=== PATIENT | male | born 1950 | race Caucasian/White ===

== ENCOUNTER 2017-05-11 12:24 | Emergency (ER) | payer OTHER ==
[~2017-05-11] VITALS: Ht 162.6 cm; Wt 75.6 kg
[~2017-05-11 12:24] MED LIST: ASPEC81 PO; ATV/1 PO; CYM60 PO; DICL1GEL12 TOP; DUTACAP PO; FERR1TAB23 PO; FRS/40 PO; GLC500 PO; LISI-461 PO; LPT40 PO; METO25TA3 PO; NTRSLP4 SL; PAIN PUMP; PRED-301 PO; PREG100C PO
[2017-05-11 12:28] VITALS: TEMP 36.5; Ht 162.6 cm; Wt 75.6 kg
--- NOTE | 2017-05-11 12:48 | EMERGENCY ROOM VISIT NOTE ---
History Report prepared by Michael: Sarah Gtz Under the Supervision of: Dr. Imtiaz Burnett M.D. First contact with patient: 12:41 Chief Complaint: ANKLE PAIN Stated Complaint: RT ANKLE TWISTED, FELL OVER DOG History of Present Illness The patient is a 66 year old male who presents to the Emergency Room with complaints of persistent right ankle pain for the past three days. He currently rates his discomfort as a 10/10 in severity. The patient states that on Thursday (2 days ago) he fell over his dog, injuring his right ankle. He denies any other injury due to the fall. The patient's states that the patient has a history of rheumatoid arthritis, noting that he has swelling to the tops of his feet. The patient reports increased swelling to his lateral aspect of his right ankle. He denies any fever or chills. The patient reports normal urination, normal appetite and fluid intake. He denies any known history of PEs or DVTs. The patient denies being on any anti-coagulants. The patient's states that the patient has a morphine pain pump. Source of History: patient Onset: past three days Position: ankle (right) Symptom Intensity: 10/10 Timing: other (persistent) Associated Symptoms: No fevers, No chills Review of Systems See HPI for pertinent positives & negatives. A total of 10 systems reviewed and were otherwise negative. Past Medical & Surgical Medical Problems: (1) Chronic pain (2) DM type 2 (diabetes mellitus, type 2) (3) HTN (hypertension) (4) Osteoarthritis (5) Rheumatoid arthritis Surgical Problems: (1) H/O hernia repair (2) Hammer toe surgery (3) History of colostomy reversal (4) History of partial colectomy (5) Left wrist surgery (6) S/P rotator cuff repair Social History Smoking Status: Never Smoker Marital Status: Housing Status: lives with significant other Occupation Status: disabled Current/Historical Medications Scheduled Aspirin (Aspirin EC Low Dose), 81 MG PO DAILY Atorvastatin (Atorvastatin Calcium), 80 MG PO HS Cephalexin Monohydrate (Keflex), 500 MG PO QID Diclofenac Sodium (Topical) (Voltaren 1% Top Gel), 1 APPLN TOP BID Duloxetine Hcl (Cymbalta), 60 MG PO BID Dutasteride-Tamsulosin Hcl (Charisma), 1 CAP PO DAILY Ferrous Sulfate (Iron), 325 MG PO QD Furosemide (Lasix), 20 MG PO DAILY Lidocaine (Lidoderm Patch 5%), 1 PATCH TOP DIRECTED Lisinopril (Lisinopril), 10 MG PO QAM Lorazepam (Ativan), 0.5 MG PO QID Metformin Hcl (Glucophage), 500 MG PO TID Metoprolol Succinate (Toprol Xl), 1 TAB PO BID Prednisone (Prednisone), 5 MG PO DAILY Pregabalin (Lyrica), 100 MG PO TID Scheduled PRN Nitroglycerin (Nitrostat), 0.4 MG SL UD PRN for Chest Pain Durable Medical Equipment [Pain Pump], BAG DAILY Allergies Coded Allergies: Celecoxib (Verified Allergy, Unknown, HIVES, 11/19/15) Levofloxacin (Verified Allergy, Unknown, HIVES, 11/19/15) Mushroom (Verified Allergy, Unknown, ., 11/19/15) Aspirin (Verified Adverse Reaction, Unknown, GASTRIC UPSET, 07/12/10) Physical Exam Vital Signs Date Time Temp Pulse Resp B/P (MAP) Pulse Ox O2 Delivery O2 Flow Rate FiO2 05/11/17 14:30 61 20 102/64 97 Room Air 05/11/17 12:28 36.5 88 20 90/44 99 Room Air Physical Exam GENERAL: Patient is in no acute distress. HEENT: No acute trauma, normocephalic atraumatic, mucous membranes moist, no nasal congestion, no scleral icterus. NECK: No stridor, no adenopathy, no meningismus, trachea is midline. LUNGS: Clear to auscultation bilaterally, no wheeze, no rhonchi, breath sounds equal. HEART: Without murmurs gallops or rubs, regular rate and rhythm. ABDOMEN: Soft, nontender, bowel sounds positive, no hernias, no peritonitis. EXTREMITIES: Right leg edema when compared to the left, pain with palpation of the lateral ankle down to the lateral foot, erythema and warmth to the distal right leg and the right ankle, no drainage. NEUROLOGIC: Oriented x 3, no acute motor or sensory deficits, no focal weakness. SKIN: No rash, no jaundice, no diaphoresis. Medical Decision & Procedures ER Provider Diagnostic Interpretation: Radiology results as stated below per my review and radiologist interpretation: RIGHT LOWER EXTREMITY VENOUS DOPPLER CLINICAL HISTORY: Right lower extremity swelling. COMPARISON STUDY: No previous studies for comparison. TECHNIQUE: Sonography of the deep venous system of the right lower extremity was performed. Compression and augmentation were evaluated. FINDINGS: The right common femoral, superficial femoral and popliteal veins were compressible. Augmentation was normal. Flow was shown within the deep calf vessels. IMPRESSION: No evidence of deep venous thrombus within the right lower extremity. Electronically signed by: Curtis Schafer M.D. 05/11/2017 2:23 PM Dictated Date/Time: 05/11/2017 2:23 PM R ANKLE MIN 3 VIEWS ROUTINE, R TIBIA/FIBULA 2 VIEWS ROUTINE CLINICAL HISTORY: fall, pain. Right lower leg and ankle pain. COMPARISON STUDY: None. FINDINGS: Soft tissue swelling within the right ankle. Oblique nondisplaced fracture with the distal right fibula. The proximal tibia and proximal fibula are intact. No dislocation within the right ankle. Well-corticated ossific density along the medial malleolus is consistent with an old avulsion injury. Old avulsion injuries are also seen at the dorsal anterior talus. IMPRESSION: Oblique acute nondisplaced fracture within the distal right fibula. No acute fractures within the tibia.. Electronically signed by: Hay Kauffman M.D. 05/11/2017 2:42 PM Dictated Date/Time: 05/11/2017 2:36 PM R ANKLE MIN 3 VIEWS ROUTINE, R TIBIA/FIBULA 2 VIEWS ROUTINE CLINICAL HISTORY: fall, pain. Right lower leg and ankle pain. COMPARISON STUDY: None. FINDINGS: Soft tissue swelling within the right ankle. Oblique nondisplaced fracture with the distal right fibula. The proximal tibia and proximal fibula are intact. No dislocation within the right ankle. Well-corticated ossific density along the medial malleolus is consistent with an old avulsion injury. Old avulsion injuries are also seen at the dorsal anterior talus. IMPRESSION: Oblique acute nondisplaced fracture within the distal right fibula. No acute fractures within the tibia.. Electronically signed by: Hay Kauffman M.D. 05/11/2017 2:42 PM Dictated Date/Time: 05/11/2017 2:36 PM RIGHT FOOT 3 VIEWS HISTORY: Right foot pain. FALL, PAIN COMPARISON: None. FINDINGS: Dorsal soft tissue swelling. There is lateral displacement/angulation of the metatarsals in relation to the tarsal bones. This is consistent with an old Lisfranc fracture/dislocation. No definite acute fracture identified within the right foot. Deformity with dislocation at the third MTP joint. There is also medial angulation and dislocation at the fourth and fifth MTP joints. This appears to be chronic. Moderate to severe degenerative changes at the midfoot. Tiny plantar heel spur. No radiopaque foreign bodies. IMPRESSION: 1. No definite acute fractures identified within the right foot. 2. Deformities and dislocations as described above which appear to be chronic. There is associated degenerative change and possibly developing neuropathic changes within the foot. Electronically signed by: Hay Kauffman M.D. 05/11/2017 2:45 PM Dictated Date/Time: 05/11/2017 2:42 PM The status of this report is Signed. Draft = Not yet reviewed or approved by Radiologist. Signed = Reviewed and approved by Radiologist. Laboratory Results 05/11/17 13:05 Red Blood Count 4.78, Mean Corpuscular Volume 76.4, Mean Corpuscular Hemoglobin 25.7, Mean Corpuscular Hemoglobin Concent 33.7, Mean Platelet Volume 8.2, Neutrophils (%) (Auto) 69.5, Lymphocytes (%) (Auto) 14.5, Monocytes (%) (Auto) 14.0, Eosinophils (%) (Auto) 1.2, Basophils (%) (Auto) 0.6, Neutrophils # (Auto ) 3.59, Lymphocytes # (Auto) 0.75, Monocytes # (Auto) 0.72, Eosinophils # (Auto ) 0.06, Basophils # (Auto) 0.03 05/11/17 13:05 Test 05/11/17 13:05 05/11/17 13:11 White Blood Count 5.16 K/uL (4.8-10.8) Red Blood Count 4.78 M/uL (4.7-6.1) Hemoglobin 12.3 g/dL (14.0-18.0) Hematocrit 36.5 % (42-52) Mean Corpuscular Volume 76.4 fL (80-100) Mean Corpuscular Hemoglobin 25.7 pg (25-34) Mean Corpuscular Hemoglobin Concent 33.7 g/dl (32-36) Platelet Count 275 K/uL (130-400) Mean Platelet Volume 8.2 fL (7.4-10.4) Neutrophils (%) (Auto) 69.5 % Lymphocytes (%) (Auto) 14.5 % Monocytes (%) (Auto) 14.0 % Eosinophils (%) (Auto) 1.2 % Basophils (%) (Auto) 0.6 % Neutrophils # (Auto) 3.59 K/uL (1.4-6.5) Lymphocytes # (Auto) 0.75 K/uL (1.2-3.4) Monocytes # (Auto) 0.72 K/uL (0.11-0.59) Eosinophils # (Auto) 0.06 K/uL (0-0.5) Basophils # (Auto) 0.03 K/uL (0-0.2) RDW Standard Deviation 44.0 fL (36.4-46.3) RDW Coefficient of Variation 15.8 % (11.5-14.5) Immature Granulocyte % (Auto) 0.2 % Immature Granulocyte # (Auto) 0.01 K/uL (0.00-0.02) Prothrombin Time 11.7 SECONDS (9.0-12.0) Prothromb Time International Ratio 1.1 (0.9-1.1) Activated Partial Thromboplast Time 27.4 SECONDS (21.0-31.0) Partial Thromboplastin Ratio 1.1 Anion Gap 8.0 mmol/L (3-11) Est Creatinine Clear Calc Drug Dose 104.0 ml/min Estimated GFR () 117.5 Estimated GFR (Non- 101.4 BUN/Creatinine Ratio 18.1 (10-20) Calcium Level 8.7 mg/dl (8.5-10.1) Bedside Lactic Acid Venous 1.18 mmol/L (0.90-1.70) Laboratory results reviewed by me. ED Course 1242: The patient was evaluated in room B5. A complete history and physical exam was performed. 1449: I reevaluated the patient and he is resting comfortably. I discussed the exam findings with him and I discussed the treatment plan. He verbalized complete understanding and agreement. He states that he would like to try to go home. Orthopedics will be consulted. 151: Ordered Rocephin Inj 1 gm IV. 1501: I discussed the patients case with [facility]. They are going to see the patient within the next few days. 1509: I reevaluated the patient and he is resting. I updated him on the treatment plan. He is ready for discharge shortly. Medical Decision The patient is a 66 year old male who presents to the ED with complaints of right ankle pain. Differential diagnoses considered include Ankle fracture, DVT , cellulitis, tib/fib fracture, foot fracture. There is no leukocytosis or concerning anemia. No significant electrolyte abnormality or kidney failure. Lactic acid level is not elevated making sepsis less likely. Blood cultures are pending. Right leg ultrasound does not show DVT. Right tib-fib, right ankle and right foot films were done-there is a distal fibular fracture, no dislocation to the ankle joint, no foot fracture. The patient received IV ceftriaxone. He was placed in a right foot/ankle boot. I did talk with orthopedics. The patient is going to be seen in the outpatient office. He will be on Keflex as well for the possibility of an early cellulitis. He was encouraged to return here for worsening redness, fever or vomiting. Medication Reconcilliation Current Medication List: was personally reviewed by me Blood Pressure Screening Patient's blood pressure: Low blood pressure Blood pressure disposition: Did not require urgent referral Consults Time Called: 1451 Consulting Physician: [facility] Returned Call: 1501 I discussed the patients case with [facility]. They are going to see the patient within the next few days. Impression Primary Impression: Ankle fracture, right Additional Impression: Cellulitis Scribe Attestation The scribe's documentation has been prepared under my direction and personally reviewed by me in its entirety. I confirm that the note above accurately reflects all work, treatment, procedures, and medical decision making performed by me. Departure Information Dispostion Home / Self-Care Prescriptions Cephalexin Monohydrate (Keflex) 500 Mg Cap 500 MG PO QID, #28 CAP Prov: Imtiaz Burnett M.D. 05/11/17 Referrals Mandeep Matamoros M.D. (PCP) Gaetano Cullen M.D. Forms HOME CARE DOCUMENTATION FORM, IMPORTANT VISIT INFORMATION Patient Instructions My [facility] Additional Instructions wear the boot for now keflex 4x per day for 1 week see orthopedics---call tomorrow for an appt continue the pain meds as before return for fever or worsening symptoms Problem Qualifiers
[2017-05-11] MEDS ORDERED: NF656 TOP (12:54)
[2017-05-11] MEDS ORDERED: GLC/500 PO (12:54)
[2017-05-11] MEDS ORDERED: DULO60CA44 PO (12:54)
[2017-05-11 13:35] LABS: BASO % 0.6 %; BASO ABS # 0.03 K/uL (0-0.2); COMPLETE YES; EOS % 1.2 %; HEMATOCRIT 36.5 % (42-52); IG% 0.2 %; LYMPH % 14.5 %; LYMPH ABS # 0.75 K/uL (1.2-3.4); MEAN CELL VOLUME 76.4 fL (80-100); MEAN CORPUSCULAR HEMOGLOBIN 25.7 pg (25-34); MEAN CORPUSCULAR HGB CONC 33.7 g/dl (32-36); MEAN PLATELET VOLUME 8.2 fL (7.4-10.4); NEUT % 69.5 %; PLATELET COUNT 275 K/uL (130-400); RED BLOOD COUNT 4.78 M/uL (4.7-6.1); WHITE BLOOD COUNT 5.16 K/uL (4.8-10.8)
[2017-05-11 13:41] LABS: INR 1.1 (0.9-1.1); PARTIAL THROMBOPLASTIN RATIO 1.1; PROTHROMBIN TIME (PATIENT) 11.7 SECONDS (9.0-12.0)
[2017-05-11 13:51] LABS: BUN/CREATININE RATIO 18.1 (10-20); CALCIUM 8.7 mg/dl (8.5-10.1); CREATININE 0.65 mg/dl (0.60-1.40); POTASSIUM 4.5 mmol/L (3.5-5.1)
--- NOTE | 2017-05-11 14:25 | DIAGNOSTIC IMAGING REPORT ---
RIGHT LOWER EXTREMITY VENOUS DOPPLER CLINICAL HISTORY: Right lower extremity swelling. COMPARISON STUDY: No previous studies for comparison. TECHNIQUE: Sonography of the deep venous system of the right lower extremity was performed. Compression and augmentation were evaluated. FINDINGS: The right common femoral, superficial femoral and popliteal veins were compressible. Augmentation was normal. Flow was shown within the deep calf vessels. IMPRESSION: No evidence of deep venous thrombus within the right lower extremity. Electronically signed by: Curtis Schafer M.D. 05/11/2017 2:23 PM Dictated Date/Time: 05/11/2017 2:23 PM
--- NOTE | 2017-05-11 14:43 | DIAGNOSTIC IMAGING REPORT ---
R ANKLE MIN 3 VIEWS ROUTINE, R TIBIA/FIBULA 2 VIEWS ROUTINE CLINICAL HISTORY: fall, pain. Right lower leg and ankle pain. COMPARISON STUDY: None. FINDINGS: Soft tissue swelling within the right ankle. Oblique nondisplaced fracture with the distal right fibula. The proximal tibia and proximal fibula are intact. No dislocation within the right ankle. Well-corticated ossific density along the medial malleolus is consistent with an old avulsion injury. Old avulsion injuries are also seen at the dorsal anterior talus. IMPRESSION: Oblique acute nondisplaced fracture within the distal right fibula. No acute fractures within the tibia.. Electronically signed by: Hay Kauffman M.D. 05/11/2017 2:42 PM Dictated Date/Time: 05/11/2017 2:36 PM
--- NOTE | 2017-05-11 14:47 | DIAGNOSTIC IMAGING REPORT ---
RIGHT FOOT 3 VIEWS HISTORY: Right foot pain. FALL, PAIN COMPARISON: None. FINDINGS: Dorsal soft tissue swelling. There is lateral displacement/angulation of the metatarsals in relation to the tarsal bones. This is consistent with an old Lisfranc fracture/dislocation. No definite acute fracture identified within the right foot. Deformity with dislocation at the third MTP joint. There is also medial angulation and dislocation at the fourth and fifth MTP joints. This appears to be chronic. Moderate to severe degenerative changes at the midfoot. Tiny plantar heel spur. No radiopaque foreign bodies. IMPRESSION: 1. No definite acute fractures identified within the right foot. 2. Deformities and dislocations as described above which appear to be chronic. There is associated degenerative change and possibly developing neuropathic changes within the foot. Electronically signed by: Hay Kauffman M.D. 05/11/2017 2:45 PM Dictated Date/Time: 05/11/2017 2:42 PM
[2017-05-11] MEDS ORDERED: CEFTRIAXONE SOD INJ 1 GM ADDVIAL IV STA (14:51)
[2017-05-11] MEDS ORDERED: CEPH500C PO (15:07)
[2017-05-11 15:39] VITALS: BP 113/65; PULSE 67; O2SAT 94
== END 2017-05-11 15:46 | disposition home or self-care (01) ==
LOC: C.EDB 12:26
DX: S82.434A Nondisplaced oblique fracture of shaft of right fibula, initial encounter for closed fracture (principal); W01.0XXA Fall on same level from slipping, tripping and stumbling without subsequent striking against object, initial encounter; M06.9 Rheumatoid arthritis, unspecified; L03.115 Cellulitis of right lower limb; Z96.89 Presence of other specified functional implants; G89.29 Other chronic pain; E11.9 Type 2 diabetes mellitus without complications; I10 Essential (primary) hypertension; M19.90 Unspecified osteoarthritis, unspecified site; Z90.49 Acquired absence of other specified parts of digestive tract; Z79.82 Long term (current) use of aspirin; Z79.899 Other long term (current) drug therapy

== ENCOUNTER → 2017-05-19 | Outpatient (CLI) | payer OTHER ==
[~2017-05-19] MED LIST changes: +CEPH500C PO; -CYM60 PO; +DULO60CA44 PO; +GLC/500 PO; -GLC500 PO; +NF656 TOP
--- NOTE | 2017-05-19 13:08 | DIAGNOSTIC IMAGING REPORT ---
R ANKLE MIN 3 VIEWS CLINICAL HISTORY: RIGHT ANKLE PAIN COMPARISON: 05/11/2017 DISCUSSION: There is no change in the alignment of the oblique fracture of the distal fibula. An age-indeterminate chip/avulsion fracture arising from the medial malleolar tip is also visualized. The ankle mortise appears intact. The bones are osteopenic. IMPRESSION: No change in alignment of the oblique fracture of the distal fibula. Stable age-indeterminate chip/avulsion fracture arising from the medial malleolar tip Electronically signed by: Richy Tatum M.D. 05/19/2017 1:07 PM Dictated Date/Time: 05/19/2017 1:06 PM
== END | disposition home or self-care (01) ==
LOC: C.RDSM 12:57
PROVIDERS: ATTEND Physician Assistant
DX: S82.821A Torus fracture of lower end of right fibula, initial encounter for closed fracture (principal); X58.XXXA Exposure to other specified factors, initial encounter

== ENCOUNTER → 2017-06-12 | Outpatient (CLI) | payer OTHER ==
--- NOTE | 2017-06-12 13:32 | DIAGNOSTIC IMAGING REPORT ---
R ANKLE MIN 3 VIEWS HISTORY: 66 years-old Male F/U RIGHT ANKLE FX follow-up study to assess distal fibular fracture COMPARISON: Right ankle radiographs 05/19/2017 TECHNIQUE: 3 views of the right ankle FINDINGS: There is progressive healing callus formation surrounding a minimally displaced oblique fracture of the distal fibula with fracture extending to the level of the tibial plafond. There is unchanged alignment of a tiny subacute medial malleolar fracture. There is persistent mild soft tissue swelling about the ankle. Moderate degenerative changes of the hindfoot and midfoot redemonstrated. The bones appear mildly demineralized. Chronic appearing subluxation seen involving the third metatarsal phalangeal joint. IMPRESSION: 1. Unchanged alignment with progressive healing involves the oblique minimally displaced fracture of the distal fibula. 2. Stable appearance of the small fracture involving the distal medial malleolus. 3. Persistent mild soft tissue swelling. The above report was generated using voice recognition software. It may contain grammatical, syntax or spelling errors. Electronically signed by: Will Tomlin M.D. 06/12/2017 1:30 PM Dictated Date/Time: 06/12/2017 1:27 PM
== END | disposition home or self-care (01) ==
LOC: C.RDSM 13:30
PROVIDERS: ATTEND Physician Assistant
DX: S82.821A Torus fracture of lower end of right fibula, initial encounter for closed fracture (principal); X58.XXXA Exposure to other specified factors, initial encounter

== ENCOUNTER → 2017-07-16 | Outpatient (CLI) | payer OTHER ==
--- NOTE | 2017-07-24 12:06 | CODING QUERY MEDICAL NECESSITY ---
SUPPORTING DIAGNOSIS NEEDED Leyva YAYA-C, A supporting diagnosis is required for the test/procedure performed on this patient in order for us to be reimbursed by the patient's insurance. Please provide a supporting diagnosis for the following test/procedure listed below next to the test name along with your signature. *If there is no additional diagnosis for this patient that would support the following test/procedure please document that below next to the test/procedure. Test(s)/Procedure(s) that require a supporting diagnosis: * ([id number]) DXA BONE DENSITY, AXIAL DIAGNOSIS: DATE OF SERVICE: 07/16/17 Provider Signature: Date: Thank you Abhijit Ye [facility] Information Management Once completed, please kindly fax back to [phone] For questions please call [phone]
== END | disposition home or self-care (01) ==
LOC: C.MAMM 12:32
PROVIDERS: ATTEND Physician Assistant
DX: M84.471A Pathological fracture, right ankle, initial encounter for fracture (principal)

== ENCOUNTER → 2017-08-06 | Outpatient (CLI) | payer OTHER ==
[~2017-08-06] MED LIST changes: +B-COTAB18; +CHOL1000 PO; +VITACAP26
[2017-08-06 13:53] LABS: BASO % 0.4 %; BASO ABS # 0.02 K/uL (0-0.2); EOS % 1.5 %; EOS ABS # 0.07 K/uL (0-0.5); HEMATOCRIT 44.7 % (42-52); HEMOGLOBIN 14.8 g/dL (14.0-18.0); LYMPH ABS # 0.75 K/uL (1.2-3.4); MEAN CELL VOLUME 79.4 fL (80-100); MEAN CORPUSCULAR HEMOGLOBIN 26.3 pg (25-34); MEAN CORPUSCULAR HGB CONC 33.1 g/dl (32-36); MEAN PLATELET VOLUME 9.2 fL (7.4-10.4); NEUT % 65.1 %; NEUT ABS # 3.06 K/uL (1.4-6.5); PLATELET COUNT 228 K/uL (130-400); RED CELL DISTRIBUTION WIDTH CV 17.3 % (11.5-14.5)
[2017-08-06 14:24] LABS: ALBUMIN 3.4 gm/dl (3.4-5.0); ALT/SGPT 34 U/L (12-78); AST/SGOT 24 U/L (15-37); CREATININE 0.74 mg/dl (0.60-1.40)
[2017-08-06 14:27] LABS: ALKALINE PHOSPHATASE 59 U/L (45-117); TOTAL PROTEIN 6.7 gm/dl (6.4-8.2)
== END | disposition home or self-care (01) ==
LOC: C.LABBC 11:15
PROVIDERS: ATTEND Internal Medicine Rheumatology
DX: M06.9 Rheumatoid arthritis, unspecified (principal); Z79.52 Long term (current) use of systemic steroids; Z79.899 Other long term (current) drug therapy; Z51.81 Encounter for therapeutic drug level monitoring

== ENCOUNTER 2017-08-27 21:33 | Emergency (ER) | payer OTHER ==
[~2017-08-27] VITALS: Ht 165.1 cm; Wt 77.4 kg
[~2017-08-27 21:33] MED LIST changes: -CEPH500C PO
[2017-08-27 21:38] VITALS: Ht 165.1 cm; Wt 77.4 kg
[2017-08-27 22:07] VITALS: O2SAT 95
[2017-08-27] MEDS ORDERED: DUTA1CAP25 PO (23:38)
[2017-08-27] MEDS ORDERED: ASCA500 PO (23:38)
[2017-08-27] MEDS ORDERED: FURO-85 PO (23:38)
[2017-08-27] MEDS ORDERED: [UNRECOGNIZED DRUG - CODE] IV (23:38)
[2017-08-27] MEDS ORDERED: DOCU100C22 PO (23:38)
[2017-08-27] MEDS ORDERED: LIDO1PAD2 TD (23:38)
[2017-08-27] MEDS ORDERED: LISI-461 PO (23:38)
[2017-08-27] MEDS ORDERED: PAIN PUMP (23:38)
[2017-08-27] MEDS ORDERED: ATOR-26 PO (23:38)
[2017-08-27] MEDS ORDERED: NTRGSL/4 UT (23:38)
[2017-08-27] MEDS ORDERED: ONDANSETRON INJ 2 MG/ML 2 ML VIAL IV STA (23:42)
[2017-08-27] MEDS ORDERED: SODIUM CHLORIDE 0.9% 1000ML 1,000 ML IV STA (23:42)
[2017-08-27] MEDS ORDERED: MoRPHine SULFATE 4 MG/ML 1 ML CARP\\VIAL IV STA (23:42)
--- NOTE | 2017-08-27 23:50 | EMERGENCY ROOM VISIT NOTE ---
History Report prepared by Michael: Jose Harman Under the Supervision of: Dr. Kandis Genao M.D. First contact with patient: 23:24 Chief Complaint: ABDOMINAL PAIN Stated Complaint: SEVERE ABD PAIN Nursing Triage Summary: C/O ABD PAIN WITH NAUSEA History of Present Illness The patient is a 67 year old male who presents to the Emergency Room with complaints of constant abdominal pain starting around 1445 today after eating a large sandwich. His pain is worse with palpation. The patient states that he was having indigestion, and he states that it has been burning around his pain pump on his left side. The patient has not had any fever, diarrhea, and vomiting , though he states that he was nauseous. He states that he has not had a BM for the past two days. He states that he has had a bowel resection due to diverticulitis, and he had a colostomy bag for 6 months. He has a pain pump since 2011 due to back surgery in 2009 and shingles and pains never went away. The patient states that before this abdominal pain he was having his normal abdominal pain. Source of History: patient Onset: 1445 Position: abdomen Timing: constant Modifying Factors (Worsening): other (palpation) Associated Symptoms: + nausea, No fevers, No vomiting, No diarrhea Review of Systems See HPI for pertinent positives & negatives. A total of 10 systems reviewed and were otherwise negative. Past Medical & Surgical Medical Problems: (1) Chronic pain (2) DM type 2 (diabetes mellitus, type 2) (3) HTN (hypertension) (4) Osteoarthritis (5) Rheumatoid arthritis Surgical Problems: (1) H/O hernia repair (2) Hammer toe surgery (3) History of colostomy reversal (4) History of partial colectomy (5) Left wrist surgery (6) S/P rotator cuff repair Social History Smoking Status: Never Smoker Marital Status: Housing Status: lives with significant other Occupation Status: disabled Current/Historical Medications Scheduled Ascorbic Acid (Vitamin C), 500 MG PO QPM Aspirin (Aspirin EC Low Dose), 81 MG PO DAILY Atorvastatin (Lipitor), 80 MG PO HS Docusate Sodium (Docqlace), 100 MG PO BID Duloxetine Hcl (Cymbalta), 60 MG PO BID Dutasteride-Tamsulosin HCl (Dutasteride/Tamsulosin Hc 0.5-0.4 mg), 1 CAP PO QAM Ferrous Sulfate (Iron), 325 MG PO QPM Lisinopril (Lisinopril), 10 MG PO QAM Lorazepam (Ativan), 0.5 MG PO QID Metformin Hcl (Glucophage), 500 MG PO TID Metoprolol Succinate (Toprol Xl), 1 TAB PO BID Prednisone (Prednisone), 5 MG PO DAILY Pregabalin (Lyrica), 100 MG PO TID Tocilizumab (Actemra), 316 MG IV Q4WK Scheduled PRN Diclofenac Sodium (Topical) (Voltaren 1% Top Gel), 1 APPLN TOP BID PRN for Pain Furosemide (Lasix), 20 MG PO DAILY PRN for FLUID RETENTION Lidocaine (Lidocaine), 1 PATCH TD DIRECTED PRN for NEEDED Nitroglycerin (Nitrostat), 0.4 MG UT PRN PRN for Chest Pain Durable Medical Equipment [Pain Pump], BAG DAILY Allergies Coded Allergies: Celecoxib (Verified Allergy, Severe, HIVES, 08/27/17) Levofloxacin (Verified Allergy, Severe, HIVES, 08/27/17) Mushroom (Verified Allergy, Unknown, UNKNOWN, 08/27/17) Aspirin (Verified Adverse Reaction, Intermediate, GASTRIC UPSET, 08/27/17) Physical Exam Vital Signs Date Time Temp Pulse Resp B/P (MAP) Pulse Ox O2 Delivery O2 Flow Rate FiO2 08/28/17 03:49 82 16 111/87 94 08/28/17 02:27 75 08/28/17 00:15 36.9 72 16 121/79 95 Room Air 08/27/17 22:29 70 08/27/17 22:07 95 Room Air 08/27/17 22:05 71 19 136/93 90 Room Air 08/27/17 21:38 36.3 83 22 171/92 99 Room Air Physical Exam Vital signs reviewed. General: Chronically ill appearing male, tremulous, in no significant distress. HEENT: No scleral icterus, PERRLA, neck supple. Atraumatic. Cardiovascular: Regular rate and rhythm, no extra sounds. Pulmonary: Clear to auscultation bilaterally, normal work of breathing. Abdomen: Pain pump to the left side of the abdomen with mild abdominal distension. Diffuse tenderness mostly in the suprapubic region. No rebound or guarding Musculoskeletal: Arthritis changes noted to te hands bilaterally. Atraumatic, no peripheral edema. Neurologic: Patient awake alert and oriented x 3, full strength in all 4 extremities. Cranial nerves 2 through 12 grossly intact. Skin: Warm, dry, no rash Medical Decision & Procedures ER Provider Diagnostic Interpretation: X-ray results as stated below per interpretation by me: Chest X-ray: No focal lung consolidation. No failure. .Radiology results as stated below per my review and radiologist interpretation: CT ABDOMEN & PELVIS With Contrast: Some dilated small bowel loops and decompressed distal segments. Could be from evolving obstruction. Minimal edema in the mesentery. Right renal scarring. Nonobstructing right renal calculi. Small low attenuation foci related to the kidneys. Appendix not identified. Abdominal mesh. Spinal lead. Degenerative and surgical changes in the spine. Basilar atelectasis/pneumonitis. Radiologist: Eleanor Yuan M.D. Laboratory Results 08/27/17 23:55 Red Blood Count 5.33, Mean Corpuscular Volume 79.2, Mean Corpuscular Hemoglobin 27.6, Mean Corpuscular Hemoglobin Concent 34.8, Mean Platelet Volume 8.7, Neutrophils (%) (Auto) 71.4, Lymphocytes (%) (Auto) 12.5, Monocytes (%) (Auto) 13.7, Eosinophils (%) (Auto) 1.4, Basophils (%) (Auto) 1.0, Neutrophils # (Auto ) 2.98, Lymphocytes # (Auto) 0.52, Monocytes # (Auto) 0.57, Eosinophils # (Auto ) 0.06, Basophils # (Auto) 0.04 08/27/17 23:55 Test 08/27/17 23:55 08/28/17 00:02 08/28/17 00:08 08/28/17 01:55 White Blood Count 4.17 K/uL (4.8-10.8) Red Blood Count 5.33 M/uL (4.7-6.1) Hemoglobin 14.7 g/dL (14.0-18.0) Hematocrit 42.2 % (42-52) Mean Corpuscular Volume 79.2 fL (80-100) Mean Corpuscular Hemoglobin 27.6 pg (25-34) Mean Corpuscular Hemoglobin Concent 34.8 g/dl (32-36) Platelet Count 151 K/uL (130-400) Mean Platelet Volume 8.7 fL (7.4-10.4) Neutrophils (%) (Auto) 71.4 % Lymphocytes (%) (Auto) 12.5 % Monocytes (%) (Auto) 13.7 % Eosinophils (%) (Auto) 1.4 % Basophils (%) (Auto) 1.0 % Neutrophils # (Auto) 2.98 K/uL (1.4-6.5) Lymphocytes # (Auto) 0.52 K/uL (1.2-3.4) Monocytes # (Auto) 0.57 K/uL (0.11-0.59) Eosinophils # (Auto) 0.06 K/uL (0-0.5) Basophils # (Auto) 0.04 K/uL (0-0.2) RDW Standard Deviation 47.8 fL (36.4-46.3) RDW Coefficient of Variation 16.7 % (11.5-14.5) Immature Granulocyte % (Auto) 0.0 % Immature Granulocyte # (Auto) 0.00 K/uL (0.00-0.02) Prothrombin Time 12.9 SECONDS (9.0-12.0) Prothromb Time International Ratio 1.2 (0.9-1.1) Activated Partial Thromboplast Time 24.4 SECONDS (21.0-31.0) Partial Thromboplastin Ratio 0.9 Anion Gap 4.0 mmol/L (3-11) Est Creatinine Clear Calc Drug Dose 68.8 ml/min Estimated GFR () 89.9 Estimated GFR (Non- 77.5 BUN/Creatinine Ratio 15.2 (10-20) Calcium Level 8.6 mg/dl (8.5-10.1) Magnesium Level 1.8 mg/dl (1.8-2.4) Total Bilirubin 0.8 mg/dl (0.2-1) Direct Bilirubin 0.2 mg/dl (0-0.2) Aspartate Amino Transf (AST/SGOT) 25 U/L (15-37) Alanine Aminotransferase (ALT/SGPT) 39 U/L (12-78) Alkaline Phosphatase 54 U/L (45-117) Total Protein 6.4 gm/dl (6.4-8.2) Albumin 3.3 gm/dl (3.4-5.0) Lipase 80 U/L (73-393) Bedside Lactic Acid Venous 2.55 mmol/L (0.90-1.70) Bedside Troponin I < 0.030 ng/ml (0-0.045) Urine Color YELLOW Urine Appearance CLEAR (CLEAR) Urine pH 7.5 (4.5-7.5) Urine Specific [place] 1.014 (1.000-1.030) Urine Protein NEG (NEG) Urine Glucose (UA) NEG (NEG) Urine Ketones NEG (NEG) Urine Occult Blood NEG (NEG) Urine Nitrite NEG (NEG) Urine Bilirubin NEG (NEG) Urine Urobilinogen NEG (NEG) Urine Leukocyte Esterase NEG (NEG) Laboratory results per my review. Medications Administered Medications (Trade) Dose Ordered Sig/Daisy Route Start Time Stop Time Status Last Admin Dose Admin Sodium Chloride 1,000 ml @ 150 mls/hr Q6H40M STAT IV 08/27/17 23:42 08/28/17 04:08 DC 08/28/17 00:11 150 MLS/HR Morphine Sulfate (MoRPHine SULFATE INJ) 4 mg NOW STAT IV 08/27/17 23:42 08/27/17 23:46 DC 08/28/17 00:12 4 MG Ondansetron HCl (Zofran Inj) 4 mg NOW STAT IV 08/27/17 23:42 08/27/17 23:46 DC 08/28/17 00:12 4 MG ECG Indication: abdominal pain Rate (beats per minute): 69 Rhythm: normal sinus Findings: no acute ischemic change, no ectopy, other (Previous ariel septal infarct. Poor quality baseline for interpretation.) Change: Patient's electrocardiogram interpreted by me. ED Course 2324: Past medical records reviewed. The patient was evaluated in room B10. A complete history and physical examination was performed. 2342: Zofran 4mg IV, Morphine Sulfate 4mg IV, Sodium Chloride 1000 ml @ 150 mls/ hr IV 0259: I reevaluated the patient, and he insists on going home against medical advice. He was discharged home. Medical Decision Differential diagnosis: Etiologies such as appendicitis, diverticulitis, PUD, biliary pathology, UTI, pancreatitis, obstruction, mesenteric ischemia, aortic pathology, infections, inflammatory bowel disease, renal colic, as well as others were entertained. This pt was evaluated and appeared to be in no distress. IV access was obtained and lab work was drawn. IV hydration was initiated. Pt was given IV morphine and zofran. CXR is unrevealing. Abd CT reveals evidence of SBO. Pt has had no vomiting. Lab work indicates a mild leukopenia and slightly elevated lactic acid. Pt was educated on the findings. He refused admission in his 's presence. We did discuss the potential consequences which he acknowledged. Pt was signed out AMA. He was advised to maintain a clear liquid diet until symptoms resolve. If worsening he agrees to return [facility]. Pt will f.u with PCP this week and return to the ED for worsening of symptoms or any medical concerns. Medication Reconcilliation Current Medication List: was personally reviewed by me Blood Pressure Screening Patient's blood pressure: Normal blood pressure Impression Primary Impression: Partial small bowel obstruction Additional Impression: Left against medical advice Scribe Attestation The scribe's documentation has been prepared under my direction and personally reviewed by me in its entirety. I confirm that the note above accurately reflects all work, treatment, procedures, and medical decision making performed by me. Departure Information Dispostion Against Medical Advice Referrals Mandeep Matamoros M.D. (PCP) Forms Call Back Authorization, HOME CARE DOCUMENTATION FORM, IMPORTANT VISIT INFORMATION Patient Instructions My [facility] Additional Instructions Diagnosis: Partial small bowel obstruction Maintain a clear liquid diet until the symptoms resolve. Zofran 4 mg ODT every 6 hours as needed for nausea. Follow-up with your physician in 24 hours or return to the emergency department for repeat exam. You have signed out of the emergency department AGAINST MEDICAL ADVICE. Return to the ER for worsening of symptoms or any medical concerns. Problem Qualifiers
[2017-08-28] MEDS ORDERED: OPTIRAY 320 IV PRN
[2017-08-28 00:13] LABS: BASO ABS # 0.04 K/uL (0-0.2); EOS % 1.4 %; EOS ABS # 0.06 K/uL (0-0.5); HEMATOCRIT 42.2 % (42-52); HEMOGLOBIN 14.7 g/dL (14.0-18.0); LYMPH % 12.5 %; LYMPH ABS # 0.52 K/uL (1.2-3.4); MEAN CELL VOLUME 79.2 fL (80-100); MEAN CORPUSCULAR HEMOGLOBIN 27.6 pg (25-34); MEAN CORPUSCULAR HGB CONC 34.8 g/dl (32-36); MEAN PLATELET VOLUME 8.7 fL (7.4-10.4); MONO % 13.7 %; MONO ABS # 0.57 K/uL (0.11-0.59); NEUT % 71.4 %; NEUT ABS # 2.98 K/uL (1.4-6.5); PLATELET COUNT 151 K/uL (130-400); RED CELL DISTRIBUTION WIDTH CV 16.7 % (11.5-14.5); RED CELL DISTRIBUTION WIDTH SD 47.8 fL (36.4-46.3); WHITE BLOOD COUNT 4.17 K/uL (4.8-10.8)
[2017-08-28 00:15] VITALS: TEMP 36.9
[2017-08-28 00:45] LABS: ALBUMIN 3.3 gm/dl (3.4-5.0); CALCIUM 8.6 mg/dl (8.5-10.1); POTASSIUM 4.6 mmol/L (3.5-5.1)
[2017-08-28 00:48] LABS: TOTAL PROTEIN 6.4 gm/dl (6.4-8.2)
[2017-08-28 01:18] LABS: INR 1.2 (0.9-1.1); PTT PATIENT 24.4 SECONDS (21.0-31.0)
[2017-08-28 03:49] VITALS: BP 111/87; PULSE 82; O2SAT 94
--- NOTE | 2017-08-28 06:41 | DIAGNOSTIC IMAGING REPORT ---
CT ABD/PELVIS IV CONTRAST ONLY CLINICAL HISTORY: Abdominal pain and distention. History of bowel perforation. COMPARISON STUDY: 07/13/2010 TECHNIQUE: Following the IV administration of 93 mL of Optiray-320, CT scan of the abdomen and pelvis was performed from the lung bases to the proximal femurs. Images are reviewed in the axial, sagittal, and coronal planes. IV contrast was administered without complication. A dose lowering technique was utilized adhering to the principles of ALARA. CT DOSE: 460.28 mGy.cm FINDINGS: Lower chest: There are calcified mediastinal and hilar lymph nodes. There is septal edema or pronounced on the left. Liver: The contrast-enhanced liver is normal in size, contour, and attenuation. There is no intrahepatic biliary ductal dilatation. The hepatic veins and portal veins are patent. Gallbladder: Unremarkable. Spleen: Normal in size and attenuation. Pancreas: Unremarkable. Adrenal glands: Unremarkable. Kidneys: There is right renal cortical scarring. Several right renal calculi are visualized largest of which measures 2.5 mm. Left renal cortical scarring is also evident. There are bilateral renal hypodensities measuring up to 13 mm. These likely represent cysts. Bowel: There are dilated small bowel loops measuring up to 3.7 cm in diameter. The distal small bowel is of normal caliber. The findings are consistent with a small bowel obstruction. There is a small bowel feces sign. There is no evidence of acute diverticulitis. Postsurgical changes are present within the sigmoid. There are postsurgical changes of a ventral hernia repair. There is a small amount of fluid adjacent to anterior dilated small bowel loops. Peritoneum: There is minimal free fluid present. Vasculature: The abdominal aorta is normal in course and caliber. Adenopathy: Mildly enlarged calcified mediastinal lymph nodes are visualized. There is no pathologic abdominal or pelvic lymphadenopathy. Pelvic viscera: There is mild bladder wall thickening. Skeletal structures: There are postsurgical changes present within the spine. A pain pump and intraspinal catheter is visualized. IMPRESSION: 1. Small bowel obstructive pattern. Small amount of edema/fluid within the mesentery 2. Interstitial edema at the lung bases 3. Right-sided nephrolithiasis 4. Bilateral renal cysts 5. Mild bladder wall thickening Electronically signed by: Richy Tatum M.D. 08/28/2017 6:39 AM Dictated Date/Time: 08/28/2017 6:34 AM
--- NOTE | 2017-08-28 07:18 | DIAGNOSTIC IMAGING REPORT ---
SINGLE VIEW CHEST CLINICAL HISTORY: Generalized abdominal pain. FINDINGS: An AP, portable, upright chest radiograph is compared to study dated 11/19/2015. The examination is degraded by portable technique and patient rotation. The heart is top normal for projection. The pulmonary vasculature is noncongested. Mild atherosclerotic calcification is noted in the thoracic aorta. There is patchy airspace consolidation the left lung base. The right lung appears clear. No large pleural effusion or pneumothorax is seen. The skeletal structures are osteopenic. Advanced arthritic change is present in the shoulders. IMPRESSION: There is patchy airspace consolidation at the left lung base. Correlate clinically for evidence of pneumonia/aspiration pneumonitis. Radiographic follow-up to resolution is recommended. Electronically signed by: Imtiaz Correa M.D. 08/28/2017 7:17 AM Dictated Date/Time: 08/28/2017 7:16 AM
== END 2017-08-28 03:45 | disposition home or self-care (01) ==
LOC: C.EDB 21:34
DX: K56.600 Partial intestinal obstruction, unspecified as to cause (principal); E11.9 Type 2 diabetes mellitus without complications; I10 Essential (primary) hypertension; M19.90 Unspecified osteoarthritis, unspecified site; M06.9 Rheumatoid arthritis, unspecified; Z90.49 Acquired absence of other specified parts of digestive tract; Z98.890 Other specified postprocedural states; Z79.82 Long term (current) use of aspirin; Z79.84 Long term (current) use of oral hypoglycemic drugs; Z79.899 Other long term (current) drug therapy

== ENCOUNTER → 2017-10-15 | Outpatient (CLI) | payer OTHER ==
[~2017-10-15] MED LIST changes: +ASCA500 PO; +ATOR-26 PO; -B-COTAB18; -CHOL1000 PO; +DOCU100C22 PO; +DUTA1CAP25 PO; -DUTACAP PO; -FRS/40 PO; +FURO-85 PO; +LIDO1PAD2 TD; -LPT40 PO; -METO25TA3 PO; +METO25TA4 PO; -NF656 TOP; +NTRGSL/4 UT; -NTRSLP4 SL; -VITACAP26; +[UNRECOGNIZED DRUG - CODE] IV
[2017-10-15 13:20] LABS: BASO % 1.1 %; BASO ABS # 0.05 K/uL (0-0.2); EOS % 1.8 %; EOS ABS # 0.08 K/uL (0-0.5); HEMATOCRIT 42.4 % (42-52); HEMOGLOBIN 14.6 g/dL (14.0-18.0); IG# 0.01 K/uL (0.00-0.02); LYMPH % 10.9 %; LYMPH ABS # 0.49 K/uL (1.2-3.4); MEAN CELL VOLUME 80.8 fL (80-100); MEAN CORPUSCULAR HEMOGLOBIN 27.8 pg (25-34); MEAN CORPUSCULAR HGB CONC 34.4 g/dl (32-36); MEAN PLATELET VOLUME 8.2 fL (7.4-10.4); MONO ABS # 0.67 K/uL (0.11-0.59); NEUT ABS # 3.18 K/uL (1.4-6.5); PLATELET COUNT 270 K/uL (130-400); RED CELL DISTRIBUTION WIDTH CV 14.9 % (11.5-14.5); RED CELL DISTRIBUTION WIDTH SD 43.9 fL (36.4-46.3); WHITE BLOOD COUNT 4.48 K/uL (4.8-10.8)
[2017-10-15 15:06] LABS: ALBUMIN 3.1 gm/dl (3.4-5.0); ALT/SGPT 32 U/L (12-78); AST/SGOT 21 U/L (15-37); CALCIUM 8.8 mg/dl (8.5-10.1); CREATININE 0.71 mg/dl (0.60-1.40)
[2017-10-15 15:10] LABS: ALKALINE PHOSPHATASE 64 U/L (45-117); TOTAL PROTEIN 6.7 gm/dl (6.4-8.2)
== END | disposition home or self-care (01) ==
LOC: C.LAB1850 12:20
PROVIDERS: ATTEND Internal Medicine Rheumatology
DX: Z79.52 Long term (current) use of systemic steroids (principal); Z79.899 Other long term (current) drug therapy; M79.641 Pain in right hand; N52.9 Male erectile dysfunction, unspecified; N40.1 Benign prostatic hyperplasia with lower urinary tract symptoms; M06.9 Rheumatoid arthritis, unspecified; M81.8 Other osteoporosis without current pathological fracture; E55.9 Vitamin D deficiency, unspecified